=== PATIENT | female | born 1935 | race Caucasian/White ===

== ENCOUNTER → 2021-11-26 13:20 | Outpatient (CLI) | payer MEDICARE, OTHER, SELFPAY ==
--- NOTE | 2021-11-26 | DI.ECHO.S_ITS ---
[facility] +---------+ : : [address] : [place] : : : : [id number] : : : : Phone: [phone]---------+ Echocardiogram Report + + :Name: TANISHA WEST Study Date: 11/26/2021 Height: 59 in : :[facility] ReadingLocation: Weight: 140 lb : : Gender: Female BSA: 1.6 m2 : :: 1935 Age: 86 yrs BP: 150/66 mmHg: :Reason For Study: EDEMA : :Ordering Physician: LOVE, : :MATEO Performed By: Bronson Dominguez : :Referring: MATEO ALEMAN : + + Interpretation Summary The patient was in sinus bradycardia with heart rates between 47-57 bpm during the exam. The left ventricle is normal in size and wall thickness. Left ventricular ejection fraction is estimated to be 50 +/- 5%. Mid to distal inferior lateral wall hypokinetic. Diastolic parameters suggest a pseudonormalization pattern, consistent with probable elevated filling pressures. The right ventricle is normal in size and function. There is moderate mitral annular calcification. Mitral leaflets thickened and calcified with decreased excursion. The mean gradient across mitral valve about 4.0 mmHg. Based on pressure half-time mitral valve area about 1.6 cm squire. At least mild mitral stenosis. Associated moderate mitral regurgitation. There is mild to moderate tricuspid regurgitation. The right ventricular systolic pressure is estimated to be at least 22 mmHg based on an estimated right atrial pressure of 3 mm Hg. Procedure: A two-dimensional transthoracic echocardiogram with color flow and Doppler was performed. The study quality was technically adequate. There is no prior echocardiogram noted for this patient. The patient was in sinus bradycardia with heart rates between 47-57 bpm during the exam. Left Ventricle: The left ventricle is normal in size and wall thickness. Left ventricular ejection fraction is estimated to be 50 +/- 5%. Mid to distal inferior lateral wall hypokinetic. Diastolic parameters suggest a pseudonormalization pattern, consistent with probable elevated filling pressures. Right Ventricle: The right ventricle is normal in size and function. Atria: The left atrium is moderately dilated. Right atrial size is normal. The interatrial septum grossly appears intact with no obvious evidence for an atrial septal defect. Mitral Valve: There is moderate mitral annular calcification. Mitral leaflets thickened and calcified with decreased excursion. The mean gradient across mitral valve about 4.0 mmHg. Based on pressure half-time mitral valve area about 1.6 cm squire. At least mild mitral stenosis. Associated moderate mitral regurgitation. There is mild mitral stenosis. The mitral valve mean gradient is 4 mmHg. There is moderate mitral regurgitation. Aortic Valve: The aortic valve is not well visualized. The aortic valve is mildly calcified. There is no hemodynamically significant valvular aortic stenosis. No aortic regurgitation is present. Tricuspid Valve: The tricuspid valve is normal. There is mild to moderate tricuspid regurgitation. The right ventricular systolic pressure is estimated to be at least 22 mmHg based on an estimated right atrial pressure of 3 mm Hg. Pulmonic Valve: The pulmonic valve is not well visualized. Great Vessels: The aortic root is normal size. The ascending aorta could not be visualized. The IVC is of normal diameter and collapses greater than 50% with a sniff. This suggests a low right atrial pressure of 3 mm Hg. Pericardium/ Pleura There is no pericardial effusion. There is an anterior echo-free space consistent with a fat pad. There is no pleural effusion. MMode/2D Measurements & Calculations LVIDd: 5.4 cm LVOT diam: 2.0 cm LVIDs: 3.7 cm Ao root diam: 2.8 cm FS: 31.5 % IVSd: 0.90 cm LVPWd: 0.80 cm LV broussard. diameter/BSA (cm/m^2): 3.4 LV sys. diameter/BSA (cm/m^2): 2.3 LA dimension: 3.4 cm RA long axis: 4.5 cm LA A2 area: 22.0 cm2 LA A4 area: 20.9 cm2 LA length (vol): 5.6 cm LA vol: 69.4 ml LA vol index: 43.8 ml/m2 TAPSE_phl: 2.4 cm Doppler Measurements & Calculations Ao V2 max: 141.0 cm/sec LVOT Max Markus: 89.4 cm/sec Ao V2 mean: 105.0 cm/sec LV V1 max P.2 mmHg Ao max P.0 mmHg LV V1 VTI: 22.6 cm Ao mean P.0 mmHg SÁNCHEZ(I,D): 2.0 cm2 Ao V2 VTI: 35.9 cm SÁNCHEZ(V,D): 2.0 cm2 sev ratio: 0.63 SÁNCHEZ indexed to BSA (cm^2/m^2): 1.2 MV E max markus: 135.0 cm/sec TR max markus: 217.0 cm/sec MV A max markus: 131.0 cm/sec TR max P.8 mmHg MV E/A: 1.0 Med Peak E' Markus: 4.4 cm/sec E/E' med: 31.0 Lat Peak E' Makrus: 4.5 cm/sec E/E' lat: 30.3 E/e' average: 30.7 MV dec time: 0.46 sec MV P1/2t: 139.7 msec MVA(VTI): 1.1 cm2 MV V2 mean: 86.4 cm/sec MV P1/2t max markus: 146.0 cm/sec MV mean P.0 mmHg MVA(P1/2t): 1.6 cm2 MV V2 VTI: 63.6 cm SV(LVOT): 71.0 ml AV VR_phl: 0.63 SÁNCHEZ(VTI)/BSA_phl: 1.3 MV P1/2t-pr_phl: 134.5 msec Reading Physician:06:23 PM
== END ==
PROVIDERS: Family Provider Internal Medicine; PCP Internal Medicine; Referring Provider Physician Assistant; Visit Provider Physician Assistant
DX: I08.1 Rheumatic disorders of both mitral and tricuspid valves (principal); R60.9 Edema, unspecified; R53.83 Other fatigue; R06.01 Orthopnea
CPT/HCPCS: 93306